=== PATIENT | female | born 1955 | race Caucasian/White ===

== ENCOUNTER 2017-01-01 10:33 | Emergency (ER) | payer BC ==
[2017-01-01 10:50] VITALS: BP 126/78; PULSE 71; RESP 16; TEMP 98.1; O2SAT 96
--- NOTE | 2017-01-01 11:04 | UCPHY ---
H & P Time Seen by Provider: 01/01/17 10:52 Patient Type: New HPI/ROS: 61-year-old female presents complaining of purulent discharge from her nose as well as headache and facial pain similar to prior episodes of sinusitis. She states she gets sinusitis 1-2 times per year. No cough, no sore throat Review of systems As per HPI-purulent nasal discharge General no fever no chills no weakness HEENT no eye pain no eye discharge. No eye redness, no sore throat Respiratory no cough, no shortness of breath Cardiac no chest pain, no peripheral edema GI no abdominal pain, no diarrhea, no constipation, no nausea, no vomiting no flank pain, no hematuria, no dysuria Musculoskeletal no myalgias, no joint pain Heme no easy bruising, no easy bleeding Endo no polyuria, no polydipsia Skin no rashes, no pruritus Neuro no syncope, no dizziness, no headaches Psych is no suicidal ideation, no homicidal ideation Past Medical/Surgical History: Hyperlipidemia Sinusitis Social History: No alcohol no drugs Smoking Status: Never smoked Physical Exam: 61-year-old female Alert and oriented nontoxic appearance, no acute distress afebrile Atraumatic normocephalic Extraocular muscles intact, anicteric Nares mild yellowish discharge, bilateral nasal turbinates erythema and swelling Oropharynx mild erythema no tonsillar swelling no exudate no uvular deviation, tolerating own secretions Neck supple no lymphadenopathy Lungs clear to auscultation bilaterally Heart regular rate and rhythm Abdomen normoactive bowel sounds soft nontender Extremities no cyanosis clubbing or edema Skin no rash Constitutional: Initial Vital Signs Temperature (C) 36.7 C 01/01/17 10:46 Heart Rate 71 01/01/17 10:46 Respiratory Rate 16 01/01/17 10:46 Blood Pressure 126/78 H 01/01/17 10:46 O2 Sat (%) 96 01/01/17 10:46 O2 Delivery Mode Room Air Allergies/Adverse Reactions: No Known Allergies Allergy (Unverified 01/01/17 10:50) Home Medications: Medication Instructions Recorded Amoxicillin/Clavulanate Pot 875 mg PO BID #20 tab 01/01/17 [Augmentin 875 MG TAB (*)] Atorvastatin Calcium 01/01/17 Cytomel 01/01/17 DEXILANT 01/01/17 Dymista Nasal [place] 01/01/17 Estrace 01/01/17 LYRICA 01/01/17 Miralax 17 gm (*) 01/01/17 Multi-Day Vitamins 01/01/17 Progesterone 01/01/17 Seroquel 01/01/17 Synthroid 01/01/17 Tylenol 01/01/17 ZALEPLON 01/01/17 Medical Decision Making ED Course/Re-evaluation: Patient seen and evaluated for purulent nasal drainage, sinus pain and congestion Differential diagnosis considered URI, bronchitis, sinusitis Impression Sinusitis Plan Augmentin Follow-up PCP Departure - Departure Disposition: Home, Routine, Self-Care Clinical Impression: Sinusitis Condition: Good Instructions: Sinusitis (ED) Referrals: NONE *PRIMARY CARE P,. [Unknown] - As per Instructions Prescriptions: Amoxicillin/Clavulanate Pot [Augmentin 875 MG TAB (*)] 875 mg PO BID #20 tab - PQRS PQRS Measurement: na
== END 2017-01-01 11:14 | disposition home or self-care (01) ==
LOC: CED 10:33
DX: J32.9 Chronic sinusitis, unspecified (principal)
CPT/HCPCS: 99203-PO; G0463-PO